=== PATIENT | female | born 1985 | race Caucasian/White ===

== ENCOUNTER → 2019-11-29 | Outpatient (CLI) | payer OTHER ==
--- NOTE | 2019-11-29 14:41 | RAD ---
3 views left knee without comparison for knee pain, history of Crohn's. FINDINGS: There is no fracture, or acute osseous abnormality identified. No significant degenerative changes. Joints and soft tissues are grossly unremarkable. No definite suprapatellar joint effusion. IMPRESSION: 1. No acute osseous abnormality. Electronically signed by: Wilberto Woodard MD (11/29/2019 2:38 PM) [id number]
== END | disposition home or self-care (01) ==
LOC: DXRAD 09:12
PROVIDERS: ATTEND Physician Assistant
DX: M25.562 Pain in left knee (principal); Z87.828 Personal history of other (healed) physical injury and trauma
CPT/HCPCS: 73562

== ENCOUNTER 2021-08-01 20:44 | Emergency (ER) | payer OTHER ==
[~2021-08-01] VITALS: Ht 160 cm; Wt 77.0 kg
[2021-08-01] MEDS ORDERED: KETOROLAC 30 MG/ML VIAL. IVP ONE (22:15)
[2021-08-01] MEDS ORDERED: FAMOTIDINE 20 MG/2 ML VIAL IVP ONE (22:15)
[2021-08-01] MEDS ORDERED: ONDANSETRON PF 4 MG/2 ML VIAL. IVP ONE (22:15)
[2021-08-01] MEDS ORDERED: IV RINGERS SOLUTION,LACTATED 1,000 ML IV ONE (22:15)
[2021-08-01 22:56] LABS: CLARITY,URINE CLEAR; COLOR,URINE YELLOW; GLUCOSE,URINE NEG (NEG); NITRITE,URINE NEG (NEG); UROBILINOGEN,URINE 0.2 mg/dL (0.2 mg/dL)
[2021-08-01 22:57] LABS: BACTERIA,URINE 0 /HPF (0-FEW); RBC,URINE OCC /HPF (0-2); SQUAMOUS EPITHELIAL CELL,UR FEW /LPF; WBC,URINE 0 /HPF (0-4)
[2021-08-01 23:24] LABS: BASO % 0 % (0-3); EOS # 0.1 x10^3/uL (0.0-0.7); EOS % 1 % (0-3); HEMATOCRIT 44.9 % (36.0-47.0); HEMOGLOBIN 15.3 g/dL (12.0-15.5); LYMPH # 1.1 x10^3/uL (1.0-4.8); LYMPH % 9 % (24-48); MEAN CORPUSCULAR HEMOGLOBIN 30 pg (25-35); MEAN CORPUSCULAR HGB CONC 34 g/dL (31-37); MEAN CORPUSCULAR VOLUME 88 fL (79-100); MONO # 0.7 x10^3/uL (0.0-1.1); MONO % 6 % (0-9); NEUT # 10.2 x10^3uL (1.8-7.7); NEUT % 84 % (31-73); PLATELET COUNT 269 x10^3/uL (140-400); RED BLOOD COUNT 5.08 x10^6/uL (3.50-5.40); RED CELL DISTRIBUTION WIDTH 12.4 % (11.5-14.5); WHITE BLOOD COUNT 12.2 x10^3/uL (4.0-11.0)
[2021-08-02 00:12] LABS: CALCIUM 8.5 mg/dL (8.5-10.1); CREATININE 0.9 mg/dL (0.6-1.0); GFR 70.5; POTASSIUM 3.6 mmol/L (3.5-5.1)
--- NOTE | 2021-08-02 00:22 | EKG ---
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
--- NOTE | 2021-08-02 00:54 | PHYS DOC ---
Past History Past Surgical History: No Surgical History, Other Additional Past Surgical Histo: RIGHT TYROID Alcohol Use: Occasionally General Adult EDM: Chief Complaint: ABDOMINAL PAIN HPI: HPI: " I ve been really hurting here on my mid and lower right abdomen..... I usually do have some problems with my gut... But this is more than my usual irritable bowel syndrome... 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 Pain has been persistent for the last 48 hours. Patient denies any trauma. Has had recent travel from a deployment [facility] for 22 months. Patient has had previous ovarian cyst and a previous cystectomy in 2016. Patient has had UTIs in the past. No recent bad food intake. No history of obstruction. Up-to-date with vaccination including COVID and flu. Pt. did have COVID infection in 2021. Review of Systems: Review of Systems: Constitutional: Denies fever or chills Eyes: Denies change in visual acuity HENT: Denies nasal congestion or sore throat Respiratory: Denies cough or shortness of breath Cardiovascular: Denies chest pain or edema GI: Complains of abdominal pain, nausea. Denies, vomiting, bloody stools or diarrhea : Denies dysuria Musculoskeletal: Denies back pain or joint pain Integument: Denies rash Neurologic: Denies headache, focal weakness or sensory changes Endocrine: Denies polyuria or polydipsia Lymphatic: Denies swollen glands Psychiatric: Denies depression or anxiety Family History: Family History: Noncontributory Current Medications: Current Meds: Current Medications Medications (Trade) Dose Ordered Sig/Roberto Start Time Stop Time Status Last Admin Dose Admin Famotidine (Pepcid Vial) 20 mg 1X ONCE 08/01/21 22:15 08/01/21 22:16 DC 08/01/21 22:20 20 MG Ketorolac Tromethamine (Toradol 30mg Vial) 30 mg 1X ONCE 08/01/21 22:15 08/01/21 22:16 DC 08/01/21 22:21 30 MG Lactated Ringer's 1,000 ml @ 999 mls/hr 1X ONCE 08/01/21 22:15 08/01/21 23:15 DC 08/01/21 22:20 999 MLS/HR Ondansetron HCl (Zofran) 8 mg 1X ONCE 08/01/21 22:15 08/01/21 22:16 DC 08/01/21 22:21 8 MG Allergies: Allergies: Allergies Coded Allergies Type Severity Reaction Last Updated Verified No Known Drug Allergies 08/01/21 No Physical Exam: PE: Constitutional: Well developed, well nourished, in moderate acute distress, non- toxic appearance. [] HENT: Normocephalic, atraumatic, bilateral external ears normal, oropharynx moist, no oral exudates, nose normal. [] Eyes: PERRLA, EOMI, conjunctiva normal, no discharge. [] Neck: Normal range of motion, no tenderness, supple, no stridor. [] Cardiovascular:Heart rate regular rhythm, no murmur [] Lungs & Thorax: Bilateral breath sounds clear to auscultation [] Abdomen: Bowel sounds decreased, soft, right mid and lower abdomen tenderness, no masses, no pulsatile masses. Rebound to right mid and lower abdomen. Old surgery scars. Skin: Warm, dry, no erythema, no rash. Tattoos. Back: No tenderness, no CVA tenderness. [] Extremities: No tenderness, no cyanosis, no clubbing, ROM intact, no edema. Mild psoas on right. Neurologic: Alert and oriented X 3, normal motor function, normal sensory function, no focal deficits noted. [] Psychologic: Affect normal, judgement normal, mood normal. [] Current Patient Data: Labs: Laboratory Tests Test 08/01/21 21:40 08/01/21 22:15 White Blood Count 12.2 x10^3/uL (4.0-11.0) H Red Blood Count 5.08 x10^6/uL (3.50-5.40) Hemoglobin 15.3 g/dL (12.0-15.5) Hematocrit 44.9 % (36.0-47.0) Mean Corpuscular Volume 88 fL (79-100) Mean Corpuscular Hemoglobin 30 pg (25-35) Mean Corpuscular Hemoglobin Concent 34 g/dL (31-37) Red Cell Distribution Width 12.4 % (11.5-14.5) Platelet Count 269 x10^3/uL (140-400) Neutrophils (%) (Auto) 84 % (31-73) H Lymphocytes (%) (Auto) 9 % (24-48) L Monocytes (%) (Auto) 6 % (0-9) Eosinophils (%) (Auto) 1 % (0-3) Basophils (%) (Auto) 0 % (0-3) Neutrophils # (Auto) 10.2 x10^3uL (1.8-7.7) H Lymphocytes # (Auto) 1.1 x10^3/uL (1.0-4.8) Monocytes # (Auto) 0.7 x10^3/uL (0.0-1.1) Eosinophils # (Auto) 0.1 x10^3/uL (0.0-0.7) Basophils # (Auto) 0.0 x10^3/uL (0.0-0.2) Activated Partial Thromboplast Time 26 SEC (23-33) D-Dimer (Sabrina) 0.56 mg/L (0.00-0.50) H POC Urine HCG, Qualitative hcg negative (Negative) Sodium Level 136 mmol/L (136-145) Potassium Level 3.6 mmol/L (3.5-5.1) Chloride Level 101 mmol/L (98-107) Carbon Dioxide Level 26 mmol/L (21-32) Anion Gap 9 (6-14) Blood Urea Nitrogen 14 mg/dL (7-20) Creatinine 0.9 mg/dL (0.6-1.0) Estimated GFR (Cockcroft-Gault) 70.5 Glucose Level 114 mg/dL (70-99) H Calcium Level 8.5 mg/dL (8.5-10.1) LG-Jff-U-Type Natriuretic Peptide 55 pg/mL (0-124) Lipase 103 U/L (73-393) Urine Collection Type Unknown Urine Color Yellow Urine Clarity Clear Urine pH 5.5 Urine Specific [place] 1.025 Urine Protein Neg (NEG-TRACE) Urine Glucose (UA) Neg mg/dL (NEG) Urine Ketones (Stick) Neg mg/dL (NEG) Urine Blood Neg (NEG) Urine Nitrite Neg (NEG) Urine Bilirubin Neg (NEG) Urine Urobilinogen Dipstick 0.2 mg/dL (0.2 mg/dL) Urine Leukocyte Esterase Neg (NEG) Urine RBC Occ /HPF (0-2) Urine WBC 0 /HPF (0-4) Urine Squamous Epithelial Cells Few /LPF Urine Bacteria 0 /HPF (0-FEW) Vital Signs: Vital Signs Date Time Temp Pulse Resp B/P (MAP) Pulse Ox O2 Delivery O2 Flow Rate FiO2 08/01/21 20:44 99.3 71 18 106/64 (78) 98 EKG: EKG: My interpretation EKG shows a sinus rhythm at 78 bpm. No findings acute STEMI of contralateral changes essentially normal EKG time of EKG is 2152 hrs. My interpretation of EKG #2 shows a sinus rhythm at 62 bpm. No acute morphology. No acute interval change. Time of this EKG is 00 36 hours [] Radiology/Procedures: Radiology/Procedures: [ IMAGING REPORT Signed PATIENT: SAMIR DELGADILLO ACCOUNT: [id number] : 1985 LOCATION: ER AGE: 35 SEX: F EXAM STATUS: REG ER ORD. PHYSICIAN: SHAGGY CARDENAS MD REASON: Severe Rt side mid and lower abdomen pain PROCEDURE: CT ABD PELV W/ORAL&IV CONTRAST Exam: CT abdomen/pelvis with intravenous contrast Indication: Severe right-sided mid and lower abdominal pain Comparison: None Technique: Helical CT imaging performed of the abdomen and pelvis after the intravenous administration of contrast. Sagittal and coronal reformats were obtained. One or more of the following individualized dose reduction techniques were utilized for this examination: 1. Automated exposure control 2. Adjustment of the mA and/or kV according to patient size 3. Use of iterative reconstruction technique. Findings: Lower chest: The lung bases are clear. The heart is normal in size. Liver: Liver is normal in size. There is a subcentimeter hypodensity at the dome the liver, too small to characterize. Gallbladder/Biliary Tree: Normal. Pancreas: Normal. Spleen: Normal. Adrenal Glands: Normal. Kidneys/Ureters/Bladder: Kidneys are normal in size and enhance symmetrically. No hydronephrosis. Ureters and bladder are normal. Reproductive Organs: Normal. Stomach, small bowel, and colon: Stomach and small bowel are normal. The appendix is dilated measuring 9 mm in diameter with wall thickening and surrounding inflammation. No fluid collection or free air. The colon is normal. Vasculature: No aortic aneurysm. Lymph Nodes: No lymphadenopathy. Peritoneum and retroperitoneum: Trace free fluid in the right lower quadrant. No free air. Bones: No acute osseous abnormality. IMPRESSION: Uncomplicated acute appendicitis. FOR INTERNAL CODING PURPOSES Critical result: Findings discussed with SHAGGY CARDENAS MD at 08/02/2021 3:50 AM. RESULT CODE: (C) Electronically signed by: Maureen Eisenberg MD (08/02/2021 3:51 AM) [facility] DICTATED AND SIGNED BY: MAUREEN EISENBERG MD DATE: 08/02/21345 CC: SHAGGY CARDENAS MD; CHERYL JONAS DO ~ ][place] [address] IMAGING REPORT Signed PATIENT: SAMIR DELGADILLO ACCOUNT: [id number] : 1985 LOCATION: ER AGE: 35 SEX: F EXAM STATUS: REG ER ORD. PHYSICIAN: SHAGGY CARDENAS MD REASON: ABDOMINAL PAIN PROCEDURE: ACUTE ABDOMEN SERIES EXAM: XR ABDOMEN COMP ACUTE 08/01/2021 11:50 PM CLINICAL INDICATION: Abdominal pain COMPARISON: None TECHNIQUE: AP supine and upright view of the abdomen. PA view of the chest. FINDINGS: There are a few prominent loops of small bowel in the midabdomen. Normal volume of stool. There is gas seen throughout the colon. No pneumoperitoneum. Heart and lungs are normal. IMPRESSION: There are a few prominent loops of small bowel in the midabdomen. CT could be obtained if further evaluation is needed. Electronically signed by: Maureen Eisenberg MD (08/02/2021 12:55 AM) [facility] DICTATED AND SIGNED BY: MAUREEN EISENBERG MD DATE: 08/02/2152 CC: SHAGGY CARDENAS MD; CHERYL JONAS DO ~ Heart Score: C/O Chest Pain: N/A Risk Factors: Risk Factors: DM, Current or recent (<one month) smoker, HTN, HLP, family history of CAD, obesity. Risk Scores: Score 0 - 3: 2.5% MACE over next 6 weeks - Discharge Home Score 4 - 6: 20.3% MACE over next 6 weeks - Admit for Clinical Observation Score 7 - 10: 72.7% MACE over next 6 weeks - Early Invasive Strategies Course & Med Decision Making: Course & Med Decision Making Pertinent Labs and Imaging studies reviewed. (See chart for details) Patient reports no significant improvement since arrival and pain meds. Will order CT of abdomen pelvis. 107 hrs. Pt. accept at [facility] if Rapid COVID is negative per Dr. Patel,for Dr. Cronin. Impression: 1. Abdomen pain 2. Leukocytosis 12.2 3. Acute appendicitis- 4. Hx. COVID infection . ( Had vaccinations prior) [] Dragon Disclaimer: Dragon Disclaimer: This electronic medical record was generated, in whole or in part, using a voice recognition dictation system. Departure Departure: Referrals: CHERYL JONAS DO (PCP) Dragon Disclaimer This chart was dictated in whole or in part using Voice Recognition software in a busy, high-work load, and often noisy Emergency Department environment. It ma y contain unintended and wholly unrecognized errors or omissions. SHAGGY CARDENAS MD Aug 02, 2021 00:54
--- NOTE | 2021-08-02 00:57 | RAD ---
EXAM: XR ABDOMEN COMP ACUTE 08/01/2021 11:50 PM CLINICAL INDICATION: Abdominal pain COMPARISON: None TECHNIQUE: AP supine and upright view of the abdomen. PA view of the chest. FINDINGS: There are a few prominent loops of small bowel in the midabdomen. Normal volume of stool. There is gas seen throughout the colon. No pneumoperitoneum. Heart and lungs are normal. IMPRESSION: There are a few prominent loops of small bowel in the midabdomen. CT could be obtained i f further evaluation is needed. Electronically signed by: Maureen Eisenberg MD (08/02/2021 12:55 AM) [facility]
[2021-08-02] MEDS ORDERED: MORPHINE SULFATE 10 MG/ML SYRINGE. SQ ONE (01:15)
[2021-08-02] MEDS ORDERED: ONDANSETRON PF 4 MG/2 ML VIAL. IVP ONE (01:15)
[2021-08-02] MEDS ORDERED: IOHEXOL 240 MG/ML 50ML VIAL. IART ONE (01:15)
[2021-08-02] MEDS ORDERED: CONTRAST GIVEN. MC PRN (01:15)
[2021-08-02] MEDS ORDERED: IOHEXOL 300 MG/ML 75 ML VIAL. IV ONE (02:15)
--- NOTE | 2021-08-02 02:44 | EKG ---
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
[2021-08-02 03:30] VITALS: BP 101/61
--- NOTE | 2021-08-02 03:53 | RAD ---
Exam: CT abdomen/pelvis with intravenous contrast Indication: Severe right-sided mid and lower abdominal pain Comparison: None Technique: Helical CT imaging performed of the abdomen and pelvis after the intravenous administratio n of contrast. Sagittal and coronal reformats were obtained. One or more of the following individualized dose reduction techniques were utilized for this examinat ion: 1. Automated exposure control 2. Adjustment of the mA and/or kV according to patient size 3. Use of iterative reconstruction technique. Findings: Lower chest: The lung bases are clear. The heart is normal in size. Liver: Liver is normal in size. There is a subcentimeter hypodensity at the dome the liver, too small to characterize. Gallbladder/Biliary Tree: Normal. Pancreas: Normal. Spleen: Normal. Adrenal Glands: Normal. Kidneys/Ureters/Bladder: Kidneys are normal in size and enhance symmetrically. No hydronephrosis. Ure ters and bladder are normal. Reproductive Organs: Normal. Stomach, small bowel, and colon: Stomach and small bowel are normal. The appendix is dilated measurin g 9 mm in diameter with wall thickening and surrounding inflammation. No fluid collection or free air . The colon is normal. Vasculature: No aortic aneurysm. Lymph Nodes: No lymphadenopathy. Peritoneum and retroperitoneum: Trace free fluid in the right lower quadrant. No free air. Bones: No acute osseous abnormality. IMPRESSION: Uncomplicated acute appendicitis. FOR INTERNAL CODING PURPOSES Critical result: Findings discussed with SHAGGY CARDENAS MD at 08/02/2021 3:50 AM. RESULT CODE: (C) Electronically signed by: Maureen Eisenberg MD (08/02/2021 3:51 AM) [facility]
[2021-08-02] MEDS ORDERED: IV NORMAL SALINE 50ML 50 ML ONE (04:14)
[2021-08-02] MEDS ORDERED: cefTRIAXone SODIUM 1 GM VIAL ONE (04:14)
[2021-08-02] MEDS ORDERED: diphenhydrAMINE 50 MG/ML VIAL IVP ONE (06:00)
[2021-08-02] MEDS ORDERED: PROCHLORPERAZINE 10 MG/2 ML VIAL. IV ONE (06:00)
== END 2021-08-02 05:50 | disposition short-term general hospital (02) ==
LOC: ER 20:44
DX: K35.80 Unspecified acute appendicitis (principal); D72.829 Elevated white blood cell count, unspecified; Z86.16 Personal history of COVID-19; Z20.822 Contact with and (suspected) exposure to COVID-19
CPT/HCPCS: 36415; 74022; 74177; 80048; 81001; 81025; 83690; 83880; 85025; 85379; 85730; 87426; 93005; 96361; 96365; 96366; 96368; 96372; 96375; 96376; 99285; J0696; J0780; J1200; J1885; J2270; J2405; J3490; J7120; Q9966; Q9967